=== PATIENT | male | born 1970 | race African-American/Black ===

== ENCOUNTER 2017-03-01 14:06 | Emergency (ER) | payer OTHER ==
[~2017-03-01] VITALS: Ht 193 cm; Wt 145.0 kg
[~2017-03-01 14:06] MED LIST: ALBU17I INH; DILTCD240 PO; DOXA1 PO; DULE200A PO; HYDR100T2 PO; LOSA50TA PO; SPIR25TA PO; SYNT125T PO
[2017-03-01 14:10] VITALS: BP 123/84; PULSE 104; RESP 20; TEMP 98.3; O2SAT 96
[2017-03-01] MEDS ORDERED: IBUPROFEN 800 MG TAB PO ONE (14:30)
[2017-03-01] MEDS ORDERED: CYCLOBENZAPRINE HCL 10 MG TAB PO ONE (14:30)
--- NOTE | 2017-03-01 14:55 | PD ---
HPI Chief Complaint: Injury Time Seen by Provider: 14:10 Travel History International Travel<30 days: No Contact w/Intl Traveler<30days: No Traveled to known affect area: No History of Present Illness HPI Patient is a 47-year-old male presenting to emergency department for evaluation of right thumb pain. 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 The thumb got jammed, pain is reportedly a 5 out of 10. Patient denies any other complaints at this time. [facility] Past Medical History Asthma: Yes Diminished Hearing: No Hypertension: Yes Thyroid Disease: Yes (HYPO) Past Surgical History Eye Surgery: Yes (RIGHT EYE AGE 15) Social History Alcohol Use: No Tobacco Use: No Substance Use: No Allergies-Medications (Allergen,Severity, Reaction): Coded Allergies: No Known Allergies (Verified , 03/01/17) Reported Meds & Prescriptions Reported Meds & Active Scripts Active Flexeril (Cyclobenzaprine HCl) 10 Mg Tab 10 Mg PO TID PRN 10 Days Ibuprofen 800 Mg Tab 800 Mg PO Q8H PRN Reported Spironolactone 25 Mg Tab 25 Mg PO DAILY Dulera 200 mcg/dose (Mometasone Furoate-Formoterol 200 mcg/dose) 200 mcg/ actuation Inh 2 Puff PO BID Diltiazem Cd (Diltiazem HCl) 240 Mg Cap 480 Mg PO DAILY Losartan Potassium 50 MG (Losartan Potassium) 50 Mg Tab 100 Mg PO DAILY Synthroid 125 mcg (Levothyroxine Sodium) 125 Mcg Tab 125 Mcg PO DAILY Doxazosin Mesylate 2 Mg Tab 4 Mg PO DAILY Review of Systems Except as stated in HPI: all other systems reviewed are Neg Musculoskeletal: Positive: Myalgias, Arthralgias, Pain Physical Exam Narrative GENERAL: Well-nourished, well-developed patient. SKIN: Focused skin assessment warm/dry. HEAD: Normocephalic. EYES: No scleral icterus. No injection or drainage. NECK: Supple, trachea midline. No JVD or lymphadenopathy. CARDIOVASCULAR: Regular rate and rhythm without murmurs, gallops, or rubs. RESPIRATORY: Breath sounds equal bilaterally. No accessory muscle use. GASTROINTESTINAL: Abdomen soft, non-tender, nondistended. MUSCULOSKELETAL: No cyanosis, or edema. No obvious deformity noted. Patient is neurovascularly intact. BACK: Nontender without obvious deformity. No CVA tenderness. Data Data Last Documented VS Vital Signs Date Time Temp Pulse Resp B/P Pulse Ox O2 Delivery O2 Flow Rate FiO2 03/01/17 14:10 98.3 104 20 123/84 96 Room Air Orders Hand, Complete ([id number]) (03/01/17 ) Ibuprofen (Motrin) (03/01/17 14:30) Cyclobenzaprine (Flexeril) (03/01/17 14:30) MDM Medical Decision Making Medical Screen Exam Complete: Yes Emergency Medical Condition: Yes Interpretation(s) Vital Signs Date Time Temp Pulse Resp B/P Pulse Ox O2 Delivery O2 Flow Rate FiO2 03/01/17 14:10 98.3 104 20 123/84 96 Room Air Differential Diagnosis Fracture versus dislocation versus sprain versus strain versus other Narrative Course Patient is a 47-year-old male presenting with left thumb pain after jamming it at work. Patient is neurovascularly intact. Decreased range of motion with flexion of left thumb. No obvious deformities noted. Patient's vital signs are stable. Ibuprofen and Flexeril given for pain. Imaging is negative for acute fracture. Patient advised to follow-up with employee med or primary care provider. He is to continue range of motion exercises, alternate heat and ice to affected area, take medications as directed. He was advised to avoid driving or operating machinery while taking Flexeril may cause him to feel drowsy. Patient verbalized understanding of instructions. Patient is stable for discharge Diagnosis Primary Impression: Finger sprain Qualified Code: S63.602A - Sprain of left thumb, unspecified site of finger, initial encounter Referrals: Employ Med Primary Care Physician Patient Instructions: Finger Sprain (ED), General Instructions, Jammed Finger ( ED) Additional Instructions: Alternate heat and ice to affected area, continue range of motion exercises, avoid exacerbating activities Take medications as directed Follow-up with employee med or primary care provider Return to emergency department for any new or worsening symptoms Med/Other Pt SpecificInfo: Prescription(s) given Scripts Cyclobenzaprine (Flexeril)10 Mg Tab10 Mg PO TID PRN (MUSCLE SPASM) 10 Days Ref 0 Prov:Doris Marie 03/01/17 Ibuprofen 800 Mg [id number] Mg PO Q8H PRN (Pain/Inflammation) #60 TAB Ref 0 Prov:Doris Marie 03/01/17 Disposition: 01 DISCHARGE HOME Condition: Stable Doris Marie March 01, 2017 14:55
--- NOTE | 2017-03-01 15:08 | RADRPT ---
EXAM DATE/TIME: 03/01/2017 14:25 [facility] COMPARISON: No previous studies available for comparison. INDICATIONS : Right hand pain. MEDICAL HISTORY : None. SURGICAL HISTORY : None. ENCOUNTER: Initial ACUITY: 1 day PAIN SCORE: 3/10 LOCATION: Right 1st digit; hand. FINDINGS: 3 views right hand. Bone alignment within normal limits. No evidence of fracture. CONCLUSION: No evidence of fracture. Chicho Rand MD on March 01, 2017 at 15:04 Board Certified Radiologist. This report was verified electronically.
[2017-03-01] MEDS ORDERED: IBUP800T23 PO (15:15)
[2017-03-01] MEDS ORDERED: CYCL1TAB29 PO (15:15)
== END 2017-03-01 16:21 | disposition home or self-care (01) ==
LOC: NEPK 14:06
DX: S63.602A Unspecified sprain of left thumb, initial encounter (principal); J45.909 Unspecified asthma, uncomplicated; I10 Essential (primary) hypertension; X58.XXXA Exposure to other specified factors, initial encounter; Y93.F9 Activity, other caregiving; Y92.239 Unspecified place in hospital as the place of occurrence of the external cause; Y99.0 Civilian activity done for income or pay
CPT/HCPCS: 73130; 99283

== ENCOUNTER → 2017-03-27 | Outpatient (CLI) | payer OTHER ==
[~2017-03-27] MED LIST changes: -ALBU17I INH; +CYCL1TAB29 PO; -HYDR100T2 PO; +IBUP800T23 PO
[2017-03-27 08:19] LABS: BLOOD, URINE NEG (NEG); COMMENT (UR) CULT NOT INDICATED; CULTURE IF INDICATED CULT NOT INDICATED; GLUCOSE,URINE NEG (NEG); HYALINE CAST, URINE 1 /lpf (RARE); KETONE, URINE NEG (NEG); MUCUS URINE FEW /lpf (OCC); NITRITE,URINE NEG (NEG); PH, URINE 5.5 (5.0-8.5); SQUAMOUS EPITHELIAL CELL URINE <1 /hpf (0-5); URINE COLOR YELLOW (YELLW/STRAW)
[2017-03-27 08:26] LABS: HEMATOCRIT 37.7 % (39.0-51.0); MEAN CELL VOLUME 90.2 FL (80.0-100.0); MEAN CORPUSCULAR HEMOGLOBIN 29.2 PG (27.0-34.0); MEAN CORPUSCULAR HGB CONC 32.3 % (32.0-36.0); PLATELET COUNT 175 TH/MM3 (150-450); RED BLOOD COUNT 4.17 MIL/MM3 (4.50-5.90); REVIEW FLAG FINAL; WHITE BLOOD COUNT 6.4 TH/MM3 (4.0-11.0)
[2017-03-27 08:40] LABS: ANION GAP 7 MEQ/L (5-15); BICARBONATE 27.1 MEQ/L (21.0-32.0); BLOOD UREA NITROGEN 24 MG/DL (7-18); CHLORIDE 107 MEQ/L (98-107); GLUCOSE,FASTING 96 MG/DL (74-99); POTASSIUM 4.4 MEQ/L (3.5-5.1); SODIUM (NA) 141 MEQ/L (136-145)
[2017-03-27 09:14] LABS: ALKALINE PHOSPHATASE 66 U/L (45-117); ALT (GPT) 42 U/L (12-78); AST (GOT) 31 U/L (15-37); GLOMERULAR FILTRATION RATE 63 ML/MIN (>89); HDL CHOLESTEROL 37.2 MG/DL (40.0-60.0); LDL CHOLESTEROL 124 MG/DL (0-99); THYROXINE (T4) 4.6 MCG/DL (4.5-12.1); TOTAL BILIRUBIN ADULT 0.2 MG/DL (0.2-1.0)
== END ==
LOC: CLAB 07:45
PROVIDERS: ATTEND Internal Medicine
DX: R63.5 Abnormal weight gain (principal); I10 Essential (primary) hypertension; D64.9 Anemia, unspecified; E78.5 Hyperlipidemia, unspecified; Z79.899 Other long term (current) drug therapy; Z12.5 Encounter for screening for malignant neoplasm of prostate
CPT/HCPCS: 36415; 80053; 80061; 81001; 82607; 82746; 84153; 84436; 84443; 85027

== ENCOUNTER → 2017-09-07 | Outpatient (CLI) | payer OTHER ==
[~2017-09-07] MED LIST changes: +CYCL10TA PO; -CYCL1TAB29 PO; +IBUP1TAB7 PO; -IBUP800T23 PO
[2017-09-07 10:51] LABS: BICARBONATE 30.5 MEQ/L (21.0-32.0); POTASSIUM 4.6 MEQ/L (3.5-5.1); THYROXINE (T4) 4.3 MCG/DL (4.5-12.1)
[2017-09-07 10:57] LABS: BLOOD, URINE NEG (NEG); GLUCOSE,URINE NEG (NEG); KETONE, URINE NEG (NEG); MUCUS URINE FEW /lpf (OCC); NITRITE,URINE NEG (NEG); PH, URINE 5.5 (5.0-8.5); URINE COLOR YELLOW (YELLW/STRAW)
== END ==
LOC: CLAB 09:01
PROVIDERS: ATTEND Internal Medicine
DX: I10 Essential (primary) hypertension (principal); E03.9 Hypothyroidism, unspecified; E78.5 Hyperlipidemia, unspecified
CPT/HCPCS: 36415; 80048; 81001; 84436; 84443